=== PATIENT | male | born 1935 | race Caucasian/White ===

== ENCOUNTER 2016-06-20 16:50 | Outpatient (RCR) | payer OTHER, MEDICARE ==
--- OUTSIDE RECORDS SUMMARY | 2016-04-18 10:51 | XMS REPORT | Continuity of Care Document ---
Author Author [facility] Organization [facility] Address Unknown Phone Unavailable Support Name Relationship Address Phone VITALY HANNAH MD Caregiver VIA [facility] [address] [place] [address] TAINA GONZALES MD Caregiver [address] [place] [address] CHAYO ZAMBRANO Next Of Kin [address] [place] [address] Insurance Providers Payer Name Policy Number Subscriber Name Relationship [employer] Medicare [id number] Ameya Olvera 18 Self / Same As Patient Advance Directives Directive Response Recorded Date/Time Advance Directives Yes 01/25/14 10:10pm Health Care Power of Barge Master Yes 01/25/14 10:10pm Organ Donor Yes 01/25/14 10:10pm Problems Medical Problems Problem Onset Date Status Intractable abdominal pain Unknown Active Lymphoma Unknown Active Dehydration Unknown Active Intractable abdominal pain Unknown Active Medications Medication Dose Route Sig Days/Qty Instructions Order Date Discontinued Date Status Fentanyl 1 Ea TD Q72H 50 MCG/HR 01/11/14 01/26/14 Discontinued Hydrocodone Bit/Acetaminophen 1 Tab PO EVERY 4HRS PRN PAIN 01/11/14 01/26/14 Discontinued Fentanyl 50 Mcg TD Q72H 01/26/14 01/28/14 Discontinued Allopurinol 300 Mg PO DAILY 01/26/14 Active Hydrocodone Bit/Acetaminophen 1 Tab PO EVERY 4HRS PRN PAIN 01/26/14 01/28/14 Discontinued Morphine Sulfate (Morphine Sulfate 30 mg (12 HOUR)) 30 Mg PO TWICE A DAY 60 Qty 01/28/14 Active [Polyethylene Glycol] 17 Gm PO BEDTIME 30 Days 01/28/14 Active Prednisone 100 Mg PO DAILY@0700 3 Qty 01/28/14 Active Docusate Sodium 100 Mg PO TWICE A DAY 30 Days 01/28/14 Active Omeprazole 20 Mg PO DAILY 30 Days 07/18/14 Active Morphine Sulfate (Morphine Sulfate IR 15 mg) 15 Mg PO EVERY 4HRS PRN PAIN 50 Qty 01/28/14 Active Social History Social History Problem Response Recorded Date/Time Alcohol Use Rarely Uses 01/25/2014 10:10pm Recreational Drug Use No 01/25/2014 10:10pm Recent Foreign Travel No 01/25/2014 10:10pm Recent Infectious Disease Exposure No 01/25/2014 10:10pm Hospitalization with Isolation Denies 01/25/2014 10:10pm Hospital Discharge Instructions No hospital discharge instructions. Plan of Care No plan of care. Functional Status No functional status results. Allergies, Adverse Reactions, Alerts Allergen Type Severity Reaction Status Last Updated No Known Drug Allergies Active 12/27/13 Immunizations Name Given Type Date of Pneumonia Vaccine 07/14/12 Historical Tetanus Booster (TDap) Less than 5yrs Historical Vital Signs Acute Vital Signs Vital Response Date/Time Height 5 ft 10 in Weight 181 lb Body Mass Index 25.9 kg/m^2 Results Test Source Date Result Interp. Ref. Range Comments Absolute Reticulocyte Count January 24, 2014 9:35am 22 10^3/uL N 22-82 PRINT TO CCRPT5 Acanthocytes January 24, 2014 9:35am SLIGHT - PRINT TO CCRPT5 Alanine Aminotransferase (ALT/SGPT) February 17, 2014 9:13am 12 U/L N 0- 55 PRINT TO CCRPT5 Albumin February 17, 2014 9:13am 3.5 G/DL N 3.2-4.5 PRINT TO CCRPT5 Alkaline Phosphatase February 17, 2014 9:13am 91 U/L N 40-136 PRINT TO CCRPT5 Alpha Fetoprotein December 28, 2013 6:55am <1.5 NG/ML - INTERPRETIVE DATAPatients who have received Oncoscinct CR/OV tracer may develop human anti-mouse antibodies that cause interference in this test and cause falsely elevated results. Please advise laboratory if this is a possibility so that alternate testing procedures may be used. Aspartate Amino Transf (AST/SGOT) February 17, 2014 9:13am 14 U/L N 5-34 PRINT TO CCRPT5 Atypical Lymphocytes January 24, 2014 9:35am 2 % - PRINT TO CCRPT5 BUN/Creatinine Ratio February 28, 2014 11:36am 25 - Band Neutrophils January 24, 2014 9:35am 1 % - PRINT TO CCRPT5 Basophils # (Auto) February 28, 2014 11:36am 0.1 10^3/uL N 0.0-0.1 Basophils % (Manual) January 24, 2014 9:35am 0 % - PRINT TO CCRPT5 Basophils (%) (Auto) February 28, 2014 11:36am 1 % N 0-10 [id number] January 06, 2014 12:20pm 2.28 H MG/L - Blood Urea Nitrogen February 28, 2014 11:36am 19 MG/DL H 7-18 CSF Appearance January 27, 2014 12:30pm - CSF Chloride January 27, 2014 12:30pm 122 MEQ/L - CSF Color January 27, 2014 12:30pm COLORLESS - CSF RBC January 27, 2014 12:30pm 28 CELLS H 0-0 CSF Total Protein January 27, 2014 12:30pm 45 MG/DL N 15-60 CSF Tube Number January 27, 2014 12:30pm 1 - ONLY 1 TUBE COLLECTED, CSF WBC January 27, 2014 12:30pm 1 CELLS N 0-5 Calcium (Send out) March 13, 2006 3:00pm 9.4 MG/DL - CA PTH CRITICAL RANGE MALE AND FEMALECRITICAL LOW - 6.0 MG/DL CRITICAL HIGH - 14.0 MG/DL Calcium Level February 28, 2014 11:36am 8.9 MG/DL N 8.5-10.1 Carbon Dioxide Level February 28, 2014 11:36am 29 MMOL/L N 21-32 Chloride Level February 28, 2014 11:36am 105 MMOL/L N 98-107 Creatinine February 28, 2014 11:36am 0.76 MG/DL N 0.60-1.30 Elliptocytes January 24, 2014 9:35am SLIGHT - PRINT TO CCRPT5 Eosinophils # (Auto) February 28, 2014 11:36am 0.1 10^3/uL N 0.0-0.3 Eosinophils % (Manual) January 24, 2014 9:35am 0 % - PRINT TO CCRPT5 Eosinophils (%) (Auto) February 28, 2014 11:36am 0 % N 0-10 Glucose Level February 28, 2014 11:36am 87 MG/DL N 70-105 Hematocrit February 28, 2014 11:36am 32 % L 40-54 Hemoglobin February 28, 2014 11:36am 10.5 G/DL L 13.3-17.7 Hypersegmented Neutrophils January 24, 2014 9:35am Not Performed - Lactate Dehydrogenase February 17, 2014 9:13am 186 U/L N 125-220 PRINT TO CCRPT5 Lymphocytes # (Auto) February 28, 2014 11:36am 1.1 X 10^3 N 1.0-4.0 Lymphocytes % (Manual) January 24, 2014 9:35am 5 % - PRINT TO CCRPT5 Lymphocytes (%) (Auto) February 28, 2014 11:36am 5 % L 12-44 Magnesium Level February 21, 2014 2:49pm 2.1 MG/DL N 1.8-2.4 Mean Corpuscular Hemoglobin February 28, 2014 11:36am 28 PG N 25-34 Mean Corpuscular Hemoglobin Concent February 28, 2014 11:36am 33 G/DL N 32 -36 Mean Corpuscular Volume February 28, 2014 11:36am 85 FL N 80-99 Mean Platelet Volume February 28, 2014 11:36am 10.4 FL N 7.4-10.4 Microcytosis January 24, 2014 9:35am SLIGHT - PRINT TO CCRPT5 Monocytes # (Auto) February 28, 2014 11:36am 1.9 X 10^3 H 0.0-1.0 Monocytes % (Manual) January 24, 2014 9:35am 5 % - PRINT TO CCRPT5 Monocytes (%) (Auto) February 28, 2014 11:36am 8 % N 0-12 Neutrophils # (Auto) February 28, 2014 11:36am 19.9 X 10^3 H 1.8-7.8 Neutrophils % (Manual) January 24, 2014 9:35am 86 % - PRINT TO CCRPT5 Neutrophils (%) (Auto) February 28, 2014 11:36am 86 % H 42-75 Parathyroid Hormone (Intact) March 13, 2006 3:00pm 34 PG/ML - Percent Reticulocyte Count January 24, 2014 9:35am 0.55 % N 0.50-2.40 PRINT TO CCRPT5 Phosphorus Level March 13, 2006 3:00pm 2.9 MG/DL N 2.5-4.9 Platelet Count February 28, 2014 11:36am 178 10^3/uL N 130-400 Poikilocytosis January 24, 2014 9:35am SLIGHT - PRINT TO CCRPT5 Potassium Level February 28, 2014 11:36am 3.9 MMOL/L N 3.6-5.0 Prothrombin Time December 28, 2013 6:55am 14.8 SEC H 12.2-14.7 Reactive Lymphocytes January 24, 2014 9:35am 1 % - PRINT TO CCRPT5 Red Blood Count February 28, 2014 11:36am 3.77 10^6/uL L 4.35-5.85 Red Cell Distribution Width February 28, 2014 11:36am 17.1 % H 10.0-14.5 Rouleau January 24, 2014 9:35am MOD - PRINT TO CCRPT5 Smudge Cells January 24, 2014 9:35am SLIGHT - RARE GIANT PLATELET OBSERVED ON DIFFERENTIAL. Sodium Level February 28, 2014 11:36am 142 MMOL/L N 135-145 Stone Ammonia March 19, 2006 1:00pm See report - Stone Analysis (T) August 12, 2007 9:35am See path report - Stone Calcium March 19, 2006 1:00pm See report - Stone Magnesium March 19, 2006 1:00pm See report - Stone Phosphate March 19, 2006 1:00pm See report - Stone Uric Acid March 19, 2006 1:00pm See report - Total Bilirubin February 17, 2014 9:13am 0.4 MG/DL N 0.1-1.0 PRINT TO CCRPT5 Total Protein February 17, 2014 9:13am 6.1 G/DL L 6.4-8.2 PRINT TO CCRPT5 Tumor Marker HCG December 28, 2013 6:55am <2 MIU/ML - HCG TUMOR MARKERIn common with other hCG assays, while well documentd in literature, this assay has not received specific FDA approval for this application. Uric Acid January 28, 2014 5:40am 3.4 MG/DL N 2.6-7.2 Urine Bacteria January 25, 2014 8:10pm NEGATIVE /HPF - Has specimen been collected/obtained? YSpecimen Description CLEAN CATCH Urine Bilirubin January 25, 2014 8:10pm NEGATIVE - Has specimen been collected/obtained? YSpecimen Description CLEAN CATCH Urine Calcium Oxalate Crystals January 25, 2014 8:10pm LARGE /LPF H - Has specimen been collected/obtained? YSpecimen Description CLEAN CATCH Urine Casts January 25, 2014 8:10pm NONE /LPF - Has specimen been collected/obtained? YSpecimen Description CLEAN CATCH Urine Citrate March 19, 2006 1:00pm See report - Urine Clarity January 25, 2014 8:10pm CLEAR - Has specimen been collected/obtained? YSpecimen Description CLEAN CATCH Urine Color January 25, 2014 8:10pm LAAZRO H - Has specimen been collected/ obtained? YSpecimen Description CLEAN CATCH Urine Creatinine March 19, 2006 1:00pm See report - Urine Crystals January 25, 2014 8:10pm PRESENT /LPF H - Has specimen been collected/obtained? YSpecimen Description CLEAN CATCH Urine Culture Indicated January 25, 2014 8:10pm NO - Has specimen been collected/obtained? YSpecimen Description CLEAN CATCH Urine Glucose (UA) January 25, 2014 8:10pm NEGATIVE - Has specimen been collected/obtained? YSpecimen Description CLEAN CATCH Urine Ketones January 25, 2014 8:10pm 1+ H - Has specimen been collected/ obtained? YSpecimen Description CLEAN CATCH Urine Leukocyte Esterase January 25, 2014 8:10pm 1+ H - Has specimen been collected/obtained? YSpecimen Description CLEAN CATCH Urine Mucus January 25, 2014 8:10pm MODERATE /LPF H - Has specimen been collected/obtained? YSpecimen Description CLEAN CATCH Urine Nitrate August 10, 2007 4:45pm Negative - Has specimen been collected/obtained? YSpecimen Description CLEAN CATCH Urine Nitrite January 25, 2014 8:10pm NEGATIVE - Has specimen been collected/obtained? YSpecimen Description CLEAN CATCH Urine Oxalate March 19, 2006 1:00pm See report - Urine Protein January 25, 2014 8:10pm 2+ H - Has specimen been collected/ obtained? YSpecimen Description CLEAN CATCH Urine RBC January 25, 2014 8:10pm NONE /HPF - Has specimen been collected/obtained? YSpecimen Description CLEAN CATCH Urine Specific [place] January 25, 2014 8:10pm 1.025 H - Has specimen been collected/obtained? YSpecimen Description CLEAN CATCH Urine Squamous Epithelial Cells August 10, 2007 4:45pm None - Has specimen been collected/obtained? YSpecimen Description CLEAN CATCH Urine Total Volume March 19, 2006 1:00pm See report - Urine Urobilinogen January 25, 2014 8:10pm 4 MG/DL H - Has specimen been collected/obtained? YSpecimen Description CLEAN CATCH Urine WBC January 25, 2014 8:10pm 2-5 /HPF - Has specimen been collected /obtained? YSpecimen Description CLEAN CATCH Urine pH January 25, 2014 8:10pm 5 - Has specimen been collected/ obtained? YSpecimen Description CLEAN CATCH White Blood Count February 28, 2014 11:36am 23.0 10^3/uL H 4.3-11.0 Lab Scanned Report August 12, 2007 5:32am Referred Lab Report [id number] - Estimat Glomerular Filtration Rate February 28, 2014 11:36am > 60 - GFR INTERPRETIVE DATA UNITS FOR ESTIMATED GFR (eGFR): mL/min/1.73 M2 REFERENCE RANGE FOR ESTIMATED GFR (eGFR) eGFR NORMAL eGFR >60 MODERATELY DECREASED eGFR 30-59 SEVERLY DECREASED eGFR 15-29 KIDNEY FAILURE <15 (OR DIALYSIS) Urine Sulfate March 19, 2006 1:00pm See report - Urine Potassium March 19, 2006 1:00pm See report - Urine Sodium March 19, 2006 1:00pm See report - Urine RBC (Auto) January 25, 2014 8:10pm NEGATIVE - Has specimen been collected/obtained? YSpecimen Description CLEAN CATCH INR Comment December 28, 2013 6:55am 1.2 N 0.8-1.4 INTERPRETIVE DATASUGGESTED THERAPEUTIC RANGE FOR INR'S: VENOUS THROMBOSIS, PULMONARY EMBOLISM, OR PREVENTION OF SYSTEMIC EMBOLISM (EG. IN ATRIAL FIBRILLATION): 2.0 - 3.0 MECHANICAL PROSTHETIC HEART VALVES: 2.5 - 3.5* *NOTE: INR'S UP TO 4.5 MAY BE NECESSARY IN SELECTED GROUPS OF HIGH RISK PATIENTS. [employer] CONSENSUS CONFERENCE ON ANTITHROMBOTIC THERAPY (2000). MRSA Screen Nasal January 11, 2014 11:30am Urine Culture Urine-Clean Catch March 06, 2006 1:50pm NO GROWTH Procedures No known history of procedures. Encounters Encounter Location Date/Time Discharged Recurring Via [facility] 04/06/14 10:56am
[2016-06-17 10:37] LABS: BASOPHILS # (AUTO) 0.1 10^3/uL (0.0-0.1); BASOPHILS % (AUTO) 1 % (0-10); EOSINOPHILS # (AUTO) 0.2 10^3/uL (0.0-0.3); EOSINOPHILS % (AUTO) 3 % (0-10); LYMPHOCYTES # (AUTO) 1.2 X 10^3 (1.0-4.0); LYMPHOCYTES % (AUTO) 17 % (12-44); MEAN CORPUSCULAR HEMOGLOBIN 29 PG (25-34); MEAN CORPUSCULAR HGB CONC 34 G/DL (32-36); MEAN CORPUSCULAR VOLUME 85 FL (80-99); MEAN PLATELET VOLUME 10.6 FL (7.4-10.4); MONOCYTES # (AUTO) 0.7 X 10^3 (0.0-1.0); MONOCYTES % (AUTO) 10 % (0-12); NEUTROPHILS # (AUTO) 4.8 X 10^3 (1.8-7.8); NEUTROPHILS % (AUTO) 69 % (42-75); PLATELET COUNT 174 10^3/uL (130-400); RED BLOOD COUNT 4.25 10^6/uL (4.35-5.85); RED CELL DISTRIBUTION WIDTH 13.8 % (10.0-14.5)
[2016-06-17 11:28] LABS: ALANINE AMINOTRANSFERASE 11 U/L (0-55); ALBUMIN 4.1 G/DL (3.2-4.5); ANION GAP 9 MMOL/L (5-14); ASPARTATE AMINO TRANSFERASE 19 U/L (5-34); BILIRUBIN,TOTAL 0.5 MG/DL (0.1-1.0); BLOOD UREA NITROGEN 21 MG/DL (7-18); BUN/CREATININE RATIO 21; CALCIUM 9.2 MG/DL (8.5-10.1); CARBON DIOXIDE 26 MMOL/L (21-32); CHLORIDE 110 MMOL/L (98-107); GFR ESTIMATED > 60; GLUCOSE 107 MG/DL (70-105); LACTATE DEHYDROGENASE 201 U/L (125-220); POTASSIUM 3.8 MMOL/L (3.6-5.0); SODIUM 145 MMOL/L (135-145); TOTAL PROTEIN 6.2 G/DL (6.4-8.2)
[~2016-06-20 16:50] MED LIST: ALLO300T2 PO; DCS100C PO; FNT100TD TD; HYDR-2890 PO; HYDR-3714 PO; MORP15TA8 PO; MORP30TA16 PO; OMEP20TA2 PO; PRD50T PO; Polyethylene Glycol PO
== END 2016-07-17 | disposition home or self-care (01) ==
LOC: ONC 16:50
PROVIDERS: ATTEND Internal Medicine Hematology & Oncology
DX: C83.36 Diffuse large B-cell lymphoma, intrapelvic lymph nodes (principal); D64.9 Anemia, unspecified; Z79.899 Other long term (current) drug therapy; Z45.2 Encounter for adjustment and management of vascular access device
CPT/HCPCS: 36591; 80053; 83615; 85025; 96523; 99213

== ENCOUNTER → 2016-08-26 | Outpatient (CLI) | payer OTHER ==
[~2016-08-26] MED LIST changes: +BARIUM SUSPENSION 2.1% (VANILLA SILQ) 450 ML PO ONE; +IOHEXOL 350 MG/ML 100 ML (OMNIPAQUE 350) VIAL IV ONE; +NS 100 ML (IVPB) BAG IV ONE
--- OUTSIDE RECORDS SUMMARY | 2016-08-26 09:34 | XMS REPORT | Continuity of Care Document ---
Author Author [facility] Organization [facility] Address Unknown Phone Unavailable Support Name Relationship Address Phone VITALY HANNAH MD Caregiver VIA [facility] [address] [place] [address] TAINA GONZALES MD Caregiver [address] [place] [address] CHAYO ZAMBRANO Next Of Kin [address] [place] [address] Insurance Providers Payer Name Policy Number Subscriber Name Relationship Wps Medicare [id number] Ameya Olvera 18 Self / Same As Patient Advance Directives Directive Response Recorded Date/Time Advance Directives Yes 01/25/14 10:10pm Health Care Power of Protozoology Teacher Yes 01/25/14 10:10pm Organ Donor Yes 01/25/14 [...] 28, 2014 11:36am 1 % N 0-10 Akqj-4-Vozikdippjpzj January 06, 2014 12:20pm 2.28 H MG/L [...] collected/obtained? YSpecimen Description CLEAN CATCH Urine Specific [place] January 25, 2014 8:10pm 1.025 H - [...] August 12, 2007 5:32am Referred Lab Report [id number] - Estimat Glomerular Filtration Rate February 28, [...] SELECTED GROUPS OF HIGH RISK PATIENTS. [employer] CONSENSUS CONFERENCE ON ANTITHROMBOTIC THERAPY (2000). MRSA Screen Nasal January 11, 2014 11:30am Urine Culture Urine-Clean Catch March 06, 2006 1:50pm NO GROWTH Procedures No known history of procedures. Encounters Encounter Location Date/Time Discharged Recurring Via [facility] 04/06/14 10:56am
--- NOTE | 2016-08-26 11:18 | Diagnostic Imaging Report ---
PROCEDURE: CT abdomen and pelvis with contrast. TECHNIQUE: Multiple contiguous axial images were obtained through the abdomen and pelvis after administration of intravenous contrast. INDICATION: Abdominal pain. History of non-Hodgkin's lymphoma. 100 mL of Omnipaque 350 is administered intravenously. COMPARISON: 06/17/2016 FINDINGS: The lung bases appear clear. There is a hypodense lesion measuring 1.5 cm in the posterior aspect of the spleen. The liver demonstrates multiple punctate calcified granulomas. The gallbladder, the pancreas, and adrenal glands appear unremarkable. The kidneys have symmetric enhancement and contrast excretion. There is no hydronephrosis. A simple cyst in the lower pole of the right kidney measuring 7.6 cm in size is seen. There are multiple urinary bladder stones seen similar to the prior exam. The abdominal aorta is normal in caliber. No para-aortic significantly enlarged lymph nodes seen. The prostate is enlarged and heterogenous measuring 6.7 cm in transverse dimension. There is diverticulosis. No diverticulitis. No significant free fluid or fluid collection in the abdomen or pelvis seen. There is a small fat-containing indirect left inguinal hernia. The osseous structures demonstrate degenerative changes in the lumbar spine and sacroiliac joints. IMPRESSION: 1. Large heterogenous prostate gland. 2. Multiple urinary bladder stones. 3. Diverticulosis. No diverticulitis. 4. Stable 1.5 cm nonspecific hypodense lesion in the posterior aspect of the spleen. Dictated by: Dictated on workstation # [id number]
== END ==
LOC: RAD 09:31
PROVIDERS: ATTEND Internal Medicine Hematology & Oncology
DX: R10.11 Right upper quadrant pain (principal); R10.12 Left upper quadrant pain
CPT/HCPCS: 74177

== ENCOUNTER → 2016-11-20 | Outpatient (RCR) | payer OTHER ==
--- OUTSIDE RECORDS SUMMARY | 2016-08-22 09:21 | XMS REPORT | Continuity of Care Document ---
Author Author [facility] Organization [facility] Address Unknown Phone Unavailable Support Name Relationship Address Phone VITALY HANNAH MD Caregiver VIA [facility] [address] [place] [address] TAINA GONZALES MD Caregiver [address] [place] [address] CHAYO ZAMBRANO Next Of Kin [address] [place] [address] Insurance Providers Payer Name Policy Number Subscriber Name Relationship Wps Medicare [id number] Ameya Olvera 18 Self / Same As Patient Advance Directives Directive Response Recorded Date/Time Advance Directives Yes 01/25/14 10:10pm Health Care Power of Rn Mds Yes 01/25/14 10:10pm Organ Donor Yes 01/25/14 [...] 28, 2014 11:36am 1 % N 0-10 [id number]-[id number] January 06, 2014 12:20pm 2.28 H MG/L [...] CATCH Urine Color January 25, 2014 8:10pm LAZARO H - Has specimen been collected/ obtained? [...] collected/obtained? YSpecimen Description CLEAN CATCH Urine Specific [place] January 25, 2014 8:10pm 1.025 H - [...] August 12, 2007 5:32am Referred Lab Report [id number] - Estimat Glomerular Filtration Rate February 28, [...] SELECTED GROUPS OF HIGH RISK PATIENTS. [employer] CONSENSUS CONFERENCE ON ANTITHROMBOTIC THERAPY (2000). MRSA Screen Nasal January 11, 2014 11:30am Urine Culture Urine-Clean Catch March 06, 2006 1:50pm NO GROWTH Procedures No known history of procedures. Encounters Encounter Location Date/Time Discharged Recurring Via [facility] 04/06/14 10:56am
[2016-08-22 09:51] LABS: BASOPHILS % (AUTO) 1 % (0-10); EOSINOPHILS # (AUTO) 0.1 10^3/uL (0.0-0.3); EOSINOPHILS % (AUTO) 1 % (0-10); LYMPHOCYTES # (AUTO) 0.9 X 10^3 (1.0-4.0); LYMPHOCYTES % (AUTO) 13 % (12-44); MEAN CORPUSCULAR HEMOGLOBIN 28 PG (25-34); MEAN CORPUSCULAR HGB CONC 34 G/DL (32-36); MEAN CORPUSCULAR VOLUME 83 FL (80-99); MEAN PLATELET VOLUME 10.6 FL (7.4-10.4); MONOCYTES # (AUTO) 0.7 X 10^3 (0.0-1.0); MONOCYTES % (AUTO) 10 % (0-12); NEUTROPHILS # (AUTO) 5.4 X 10^3 (1.8-7.8); NEUTROPHILS % (AUTO) 75 % (42-75); PLATELET COUNT 177 10^3/uL (130-400); RED BLOOD COUNT 4.53 10^6/uL (4.35-5.85); RED CELL DISTRIBUTION WIDTH 14.3 % (10.0-14.5); WHITE BLOOD COUNT 7.1 10^3/uL (4.3-11.0)
[2016-08-22 10:51] LABS: ALANINE AMINOTRANSFERASE 13 U/L (0-55); ALBUMIN 4.3 G/DL (3.2-4.5); ANION GAP 11 MMOL/L (5-14); ASPARTATE AMINO TRANSFERASE 19 U/L (5-34); BILIRUBIN,TOTAL 0.8 MG/DL (0.1-1.0); BLOOD UREA NITROGEN 19 MG/DL (7-18); BUN/CREATININE RATIO 19; CALCIUM 9.2 MG/DL (8.5-10.1); CARBON DIOXIDE 25 MMOL/L (21-32); CHLORIDE 106 MMOL/L (98-107); CREATININE SERUM 1.01 MG/DL (0.60-1.30); GFR ESTIMATED > 60; GLUCOSE 64 MG/DL (70-105); LACTATE DEHYDROGENASE 209 U/L (125-220); POTASSIUM 3.6 MMOL/L (3.6-5.0); SODIUM 142 MMOL/L (135-145); TOTAL PROTEIN 6.6 G/DL (6.4-8.2)
[~2016-11-20] MED LIST changes: -BARIUM SUSPENSION 2.1% (VANILLA SILQ) 450 ML PO ONE; -IOHEXOL 350 MG/ML 100 ML (OMNIPAQUE 350) VIAL IV ONE; -NS 100 ML (IVPB) BAG IV ONE
[2016-11-20 09:40] LABS: BASOPHILS % (AUTO) 1 % (0-10); EOSINOPHILS # (AUTO) 0.1 10^3/uL (0.0-0.3); EOSINOPHILS % (AUTO) 1 % (0-10); LYMPHOCYTES # (AUTO) 0.9 X 10^3 (1.0-4.0); LYMPHOCYTES % (AUTO) 13 % (12-44); MEAN CORPUSCULAR HEMOGLOBIN 28 PG (25-34); MEAN CORPUSCULAR HGB CONC 33 G/DL (32-36); MEAN CORPUSCULAR VOLUME 85 FL (80-99); MEAN PLATELET VOLUME 10.9 FL (7.4-10.4); MONOCYTES # (AUTO) 0.6 X 10^3 (0.0-1.0); MONOCYTES % (AUTO) 8 % (0-12); NEUTROPHILS # (AUTO) 5.4 X 10^3 (1.8-7.8); NEUTROPHILS % (AUTO) 77 % (42-75); PLATELET COUNT 153 10^3/uL (130-400); RED BLOOD COUNT 4.28 10^6/uL (4.35-5.85); RED CELL DISTRIBUTION WIDTH 13.6 % (10.0-14.5)
[2016-11-20 10:38] LABS: ALANINE AMINOTRANSFERASE 11 U/L (0-55); ALBUMIN 3.9 G/DL (3.2-4.5); ANION GAP 11 MMOL/L (5-14); ASPARTATE AMINO TRANSFERASE 16 U/L (5-34); BILIRUBIN,TOTAL 0.9 MG/DL (0.1-1.0); BLOOD UREA NITROGEN 26 MG/DL (7-18); BUN/CREATININE RATIO 24; CALCIUM 9.2 MG/DL (8.5-10.1); CARBON DIOXIDE 28 MMOL/L (21-32); CHLORIDE 105 MMOL/L (98-107); CREATININE SERUM 1.09 MG/DL (0.60-1.30); GFR ESTIMATED > 60; GLUCOSE 84 MG/DL (70-105); LACTATE DEHYDROGENASE 174 U/L (125-220); POTASSIUM 3.3 MMOL/L (3.6-5.0); SODIUM 144 MMOL/L (135-145)
== END | disposition home or self-care (01) ==
LOC: ONC 08-22 09:16
PROVIDERS: ATTEND Internal Medicine Hematology & Oncology
DX: C83.36 Diffuse large B-cell lymphoma, intrapelvic lymph nodes (principal); D64.9 Anemia, unspecified; Z79.899 Other long term (current) drug therapy; Z45.2 Encounter for adjustment and management of vascular access device
CPT/HCPCS: 36415; 80053; 82232; 82784; 83615; 84153; 85025; 99213

== ENCOUNTER 2017-04-10 15:11 | Outpatient (RCR) | payer MEDICARE, OTHER ==
[2017-04-10 15:12] LABS: PEP REPORT SEE PATH REPORT
[2017-04-10 15:21] LABS: BASOPHILS % (AUTO) 1 % (0-10); EOSINOPHILS % (AUTO) 0 % (0-10); LYMPHOCYTES # (AUTO) 1.3 X 10^3 (1.0-4.0); LYMPHOCYTES % (AUTO) 16 % (12-44); MEAN CORPUSCULAR HEMOGLOBIN 29 PG (25-34); MEAN CORPUSCULAR HGB CONC 33 G/DL (32-36); MEAN CORPUSCULAR VOLUME 86 FL (80-99); MEAN PLATELET VOLUME 10.7 FL (7.4-10.4); MONOCYTES # (AUTO) 0.5 X 10^3 (0.0-1.0); MONOCYTES % (AUTO) 6 % (0-12); NEUTROPHILS # (AUTO) 6.3 X 10^3 (1.8-7.8); NEUTROPHILS % (AUTO) 78 % (42-75); PLATELET COUNT 200 10^3/uL (130-400); RED BLOOD COUNT 4.28 10^6/uL (4.35-5.85); RED CELL DISTRIBUTION WIDTH 13.6 % (10.0-14.5); WHITE BLOOD COUNT 8.1 10^3/uL (4.3-11.0)
[2017-04-10 15:45] LABS: ALBUMIN 4.3 GM/DL (3.2-4.5); CALCIUM 9.3 MG/DL (8.5-10.1); CREATININE SERUM 1.17 MG/DL (0.60-1.30); POTASSIUM 2.8 MMOL/L (3.6-5.0); TOTAL PROTEIN 7.2 GM/DL (6.4-8.2)
[2017-04-10 17:31] LABS: MAGNESIUM 1.9 MG/DL (1.8-2.4)
[2017-04-15 08:08] LABS: CLIN PATHOLOGY REPORT FOOTNOTE
[2017-04-15 08:09] LABS: SERUM PROTEIN ELEC DETAIL L-17-0012937
== END 2017-04-12 | disposition home or self-care (01) ==
LOC: ONC 15:11
PROVIDERS: ATTEND Internal Medicine Hematology & Oncology
DX: D64.9 Anemia, unspecified; Z79.899 Other long term (current) drug therapy; C83.36 Diffuse large B-cell lymphoma, intrapelvic lymph nodes
CPT/HCPCS: 36415; 80053; 82232; 83615; 83735; 84155; 84165; 85025; 99213